=== PATIENT | male | born 1965 | race Two or more races ===

== ENCOUNTER 2025-02-08 16:08 | Emergency (ER) | payer OTHER, MEDICAID ==
[~2025-02-08] VITALS: Ht 170.2 cm; Wt 69.0 kg
[2025-02-08 16:20] VITALS: TEMP 36.4; O2SAT 98
[2025-02-08 17:44] LABS: *AMPHETAMINES SCREEN URINE NEGATIVE (NEGATIVE)
[2025-02-08 17:45] LABS: *BARBITURATES SCREEN URINE NEGATIVE (NEGATIVE); *BENZODIAZEPINES SCREEN URINE NEGATIVE (NEGATIVE); *COCAINE SCREEN URINE NEGATIVE (NEGATIVE); CANNABINOID URINE SCREEN NEGATIVE (NEGATIVE); ECSTASY MDMA SCREEN URINE NEGATIVE (NEGATIVE); METHADONE URINE SCREEN NEGATIVE (NEGATIVE); OPIATES URINE SCREEN NEGATIVE (NEGATIVE); PHENCYCLIDINE URINE SCREEN NEGATIVE (NEGATIVE)
[2025-02-08 17:50] VITALS: TEMP 98.4
[2025-02-08] MEDS: ACETAMINOPHEN 325MG TABLET PO ONE (17:50)
[2025-02-08] MEDS: SODIUM CHLORIDE 0.9% 1,000 ML IV ONE (17:51)
[2025-02-08 18:31] LABS: BASOPHILS % 0.7 % (0.0-2.0); EOSINOPHILS % 3.0 % (0.0-5.0); HEMATOCRIT. 40.3 % (42.0-52.0); HEMOGLOBIN. 13.0 g/dL (14.0-18.0); LYMPHOCYTES % 16.8 % (20.0-50.0); MEAN PLATELET VOLUME 9.7 fl (7.4-10.4); MONOCYTES % 6.9 % (2.0-8.0); NEUTROPHILS % 72.6 % (40.0-76.0); PLATELET 216 x1000/uL (130-400); RED BLOOD CELL COUNT 5.43 mill/uL (4.7-6.1); RED CELL DISTRIBUTION WIDTH 15.4 % (11.6-14.6)
[2025-02-08 18:56] LABS: CREATININE 1.3 mg/dL (0.6-1.3)
[2025-02-08 18:57] LABS: ETHANOL BLOOD < 10 mg/dL (<10); UREA NITROGEN BLOOD 11 mg/dL (9-23)
[2025-02-08 18:58] LABS: ASPARTATE AMINOTRANSFERASE 17 IU/L (<34)
[2025-02-08 18:59] LABS: BILIRUBIN DIRECT 0.3 mg/dL (<=3.0); BILIRUBIN TOTAL 1.1 mg/dL (0.1-1.0); PROTEIN TOTAL 7.6 g/dL (6.0-8.3)
[2025-02-08 19:28] LABS: TROPONIN I HIGH SENSITIVITY 5 ng/L (3.0-53)
[2025-02-08] MEDS ORDERED: IBUP-1455 MT (19:37)
[2025-02-08] MEDS ORDERED: METH-653 MT (19:37)
[2025-02-08 20:07] VITALS: BP 114/69; PULSE 68; RESP 16; O2SAT 100
== END 2025-02-08 20:10 | disposition home or self-care (01) ==
LOC: ER 16:27
DX: S13.4XXA Sprain of ligaments of cervical spine, initial encounter (principal); S80.211A Abrasion, right knee, initial encounter; E11.65 Type 2 diabetes mellitus with hyperglycemia; G40.909 Epilepsy, unspecified, not intractable, without status epilepticus; V49.9XXA Car occupant (driver) (passenger) injured in unspecified traffic accident, initial encounter; Y93.89 Activity, other specified; Y92.410 Unspecified street and highway as the place of occurrence of the external cause; Y99.8 Other external cause status
CPT/HCPCS: 80076; 80305; 80048; 80320; 82962; 83735; 85025; 84484; 36415; 71045; 93005; 99285; J7030; G0480